=== PATIENT | female | born 1970 | race Two or more races ===

== ENCOUNTER 2022-10-05 15:10 | Emergency (ER) | payer OTHER ==
[~2022-10-05] VITALS: Ht 160 cm; Wt 80.7 kg
[~2022-10-05 15:10] MED LIST: ASMANEX0.24 G1 IH; NASONEX17 GM NS
[2022-10-05] MEDS ORDERED: FLOVENT HFA10.6 GM (15:34)
[2022-10-05] MEDS ORDERED: FLONASE ALLERG9.9 ML (15:34)
[2022-10-05] MEDS ORDERED: PROAIR RESPICL90 MCG (15:34)
== END 2022-10-05 17:54 | disposition home or self-care (01) ==
LOC: ER 15:10
DX: R07.9 Chest pain, unspecified (principal); V43.52XA Car driver injured in collision with other type car in traffic accident, initial encounter; W22.11XA Striking against or struck by driver side automobile airbag, initial encounter; Y93.89 Activity, other specified; Y92.413 State road as the place of occurrence of the external cause